=== PATIENT | female | born 2000 | race Caucasian/White ===

== ENCOUNTER 2018-05-16 11:50 | Emergency (ER) | payer SELFPAY ==
[2018-05-16] MEDS ORDERED: NAPROXEN250 MG PO (12:06)
[2018-05-16] MEDS ORDERED: LAMICTAL150 MG PO (12:07)
[2018-05-16] MEDS ORDERED: TRAZODONE50 MG PO (12:08)
[2018-05-16] MEDS ORDERED: ATOMOXETINE40 MG PO (12:09)
[2018-05-16] MEDS ORDERED: WELLBUTRIN SR150 MG PO (12:10)
[2018-05-16] MEDS ORDERED: PENICILLN VK500 MG PO (12:22)
[2018-05-16] MEDS ORDERED: TRAMADOL HYDROC50 MG PO (12:22)
[2018-05-16] MEDS ORDERED: DICLOFENAC75 MG PO (12:35)
[2018-05-16 12:43] VITALS: BP 138/71
== END 2018-05-16 12:43 | disposition home or self-care (01) | DRG 158 ==
LOC: ED 11:50
DX: K04.7 Periapical abscess without sinus (principal); M84.68XA Pathological fracture in other disease, other site, initial encounter for fracture